=== PATIENT | male | born 1990 | race Caucasian/White ===

== ENCOUNTER 2017-07-30 09:47 | Emergency (ER) | payer OTHER ==
[~2017-07-30] VITALS: Ht 190.5 cm; Wt 92.0 kg
[2017-07-30 10:01] VITALS: TEMP 37; Ht 190.5 cm; Wt 92.0 kg
--- NOTE | 2017-07-30 10:42 | EMERGENCY ROOM VISIT NOTE ---
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 The patient states first she had red patches on his buttocks and left arm. This morning he woke up and he has a rash on his eyelids and also behind his years. The patient denies any new soaps or detergents. He is currently on loratadine for allergies. The patient does admit to a lot of postnasal drainage but denies any sore throat, cough or fever. REVIEW OF SYSTEMS: 6 system review was performed and was negative unless stated otherwise in history of present illness. PMH: The patient is healthy; there is no significant medical or surgical history. SOCIAL HISTORY: Patient is a [employer] student. The patient denies any tobacco or alcohol use. PHYSICAL EXAM: Vital Signs were reviewed: Reviewed Nurse's notes and agree.l . GENERAL: 27-year-old male appears in no acute distress. MENTAL STATUS: Alert, oriented, coherent. EARS: Canals clear. TMs good light reflex, no erythema or fluid level noted. NOSE turbinates by mouth pill boggy bilaterally.. PHARYNX: Moderate erythema, no edema noted. No exudate noted. Airway is adequate. NECK: Supple, non-tender. No lymphadenopathy noted. LUNGS: Clear to auscultation without wheezes rales or rhonchi. CARDIAC: Regular rate and rhythm without murmur. SKIN: The patient has a patchy erythematous dry rash on his left arm, buttocks, behind both ears and on his upper eyelids and at the outer canthus of both eyes. EMERGENCY COURSE: I discussed with the patient that the rash is most likely either allergy or viral. DIAGNOSIS: Exanthem etiology unknown DISCHARGE INSTRUCTIONS: Continue loratadine daily. Also recommend over-the- counter Nasacort nasal spray daily as directed on the label. Use hypoallergenic skin soap as well as laundry detergent. Run your sheets through a rinse cycle. Symptoms do not resolve in 7 days, follow-up with [facility]. If symptoms worsen in the interim, follow-up with [facility] earlier. Patient condition was stable. Please see Emergency Department Medical Record for additional patient information; this may include discharge diagnosis, interpretation of EKG, laboratory, and/or radiologic studies, Emergency Department course, etc. Current/Historical Medications No Active Prescriptions or Reported Meds Allergies Coded Allergies: No Known Allergies (Unverified , 07/30/17) Vital Signs Date Time Temp Pulse Resp B/P (MAP) Pulse Ox O2 Delivery O2 Flow Rate FiO2 07/30/17 10:01 37.0 80 20 135/85 97 Room Air Departure Information Prescriptions No Active Prescriptions or Reported Meds Referrals [facility] ([facility]) Patient Instructions [facility]
[2017-07-30 11:00] VITALS: BP 132/82; PULSE 89; O2SAT 99
== END 2017-07-30 11:19 | disposition home or self-care (01) ==
LOC: C.EDB 09:49 → C.EDC 11:19
DX: R21 Rash and other nonspecific skin eruption (principal)